=== PATIENT | female | born 1955 | race African-American/Black ===

== ENCOUNTER 2017-03-02 13:44 | Emergency (ER) | payer MEDICARE, OTHER ==
[~2017-03-02] VITALS: Ht 167.6 cm; Wt 70.0 kg
[~2017-03-02 13:44] MED LIST: ACET-2178 PO; ASCO500C15 PO; BUPR150T3 PO; CALC-381 PO; CALC667C4 PO; CHOL100026 PO; CINA30 PO; FERR-63 PO; GLIM4TAB2 PO; LOSA25TA12 PO; METO-296 PO; PARO-41 PO; PRAV80TA21 PO; VALS320T2 PO; [UNRECOGNIZED DRUG - OTHER] PO; flax seed oil PO
[2017-03-02] MEDS ORDERED: LIDOCAINE HCL 1% 20ML VIAL (Pyxis) INJ MC ONE (14:30)
[2017-03-02 14:33] LABS: BASOPHILS % 1.1 % (0.0-2.0); EOSINOPHILS % 0.9 % (0.0-5.0); HEMATOCRIT. 31.9 % (36.0-48.0); HEMOGLOBIN. 10.5 g/dL (12.0-16.0); LYMPHOCYTES % 16.6 % (20.0-50.0); MEAN CORPUSCULAR HEMOGLOBIN 28.7 pg (28.0-32.0); MEAN CORPUSCULAR VOLUME 87.3 fL (81.0-99.0); MEAN PLATELET VOLUME 6.9 fl (7.4-10.4); MONOCYTES % 7.5 % (2.0-8.0); NEUTROPHILS % 73.9 % (40.0-76.0); PLATELET 369 x1000/uL (130-400); RED BLOOD CELL COUNT 3.66 mill/uL (4.2-5.4); RED CELL DISTRIBUTION WIDTH 22.1 % (11.6-14.6)
[2017-03-02 14:42] LABS: PROTHROMBIN TIME 10.4 sec
[2017-03-02 14:47] LABS: CARBON DIOXIDE 27 mEq/L (21-32); CHLORIDE 105 mEq/L (98-107)
[2017-03-02 16:26] LABS: PLATELET ESTIMATE NORMAL
[2017-03-02 16:37] VITALS: BP 146/72
== END 2017-03-02 16:45 | disposition home or self-care (01) ==
LOC: ER 13:45
DX: T82.838A Hemorrhage due to vascular prosthetic devices, implants and grafts, initial encounter (principal); I10 Essential (primary) hypertension; E11.22 Type 2 diabetes mellitus with diabetic chronic kidney disease; N18.6 End stage renal disease; I11.9 Hypertensive heart disease without heart failure; Z88.0 Allergy status to penicillin; Z99.2 Dependence on renal dialysis; Z79.899 Other long term (current) drug therapy; Y84.1 Kidney dialysis as the cause of abnormal reaction of the patient, or of later complication, without mention of misadventure at the time of the procedure
CPT/HCPCS: 12001; 36415; 80053; 85025; 85610; 85730; 99284; J3490

== ENCOUNTER 2018-02-07 19:43 | Inpatient (IN) | payer MEDICARE, MEDICAID ==
[~2018-02-07] VITALS: Ht 172.7 cm; Wt 113.2 kg
[~2018-02-07 19:43] MED LIST changes: -ACET-2178 PO; +AMLO10TA80 PO; -CALC667C4 PO; +CALCIUM ACETATE; -CHOL100026 PO; +CHOL100044 PO; +HYDR-4135 PO; -LOSA25TA12 PO; -METO-296 PO; +METO-396 PO; +NAPR-681 PO; +ZOLP5TAB2 PO; -flax seed oil PO
[2018-02-07] MEDS ORDERED: SODIUM CHLORIDE 0.9% 1,000 ML IV ONE (20:15)
[2018-02-07 22:57] LABS: BASOPHILS % 1.1 % (0.0-2.0); EOSINOPHILS % 2.4 % (0.0-5.0); HEMATOCRIT. 27.9 % (36.0-48.0); HEMOGLOBIN. 9.3 g/dL (12.0-16.0); LYMPHOCYTES % 19.5 % (20.0-50.0); MEAN CORPUSCULAR HEMOGLOBIN 29.1 pg (28.0-32.0); MEAN CORPUSCULAR VOLUME 87.4 fL (81.0-99.0); MEAN PLATELET VOLUME 7.7 fl (7.4-10.4); MONOCYTES % 13.7 % (2.0-8.0); NEUTROPHILS % 63.3 % (40.0-76.0); PLATELET 438 x1000/uL (130-400); RED BLOOD CELL COUNT 3.19 mill/uL (4.2-5.4); RED CELL DISTRIBUTION WIDTH 19.1 % (11.6-14.6)
[2018-02-07 23:04] LABS: PARTIAL THROMBOPLASTIN TIME 28.8 sec (23.4-31.0)
[2018-02-08 07:41] VITALS: BP 168/82
[2018-02-08] MEDS ORDERED: CLONIDINE 0.1MG TABLET PO PRN (10:30)
[2018-02-08] MEDS ORDERED: LORAZEPAM 2MG/ML CPJ IV PRN (10:30)
[2018-02-08] MEDS ORDERED: DOCUSATE SODIUM 100MG CAPSULE PO PRN (10:30)
[2018-02-08] MEDS ORDERED: HYDROCODONE/ACETAMINOPHEN 5/325MG TABLET PO PRN (10:30)
[2018-02-08] MEDS ORDERED: MAGNESIUM/ALUMINUM HYDROXIDE/SIMETHICONE 30ML UDC PO PRN (10:30)
[2018-02-08] MEDS ORDERED: ACETAMINOPHEN 325MG TABLET PO PRN (10:30)
[2018-02-08] MEDS ORDERED: NA PHOS,M-B/NA PHOS,DI-BA ENEMA 118ML PR PRN (10:30)
[2018-02-08] MEDS ORDERED: GUAIFENESIN 200MG/10ML SUGAR FREE UDC PO PRN (10:30)
[2018-02-08] MEDS ORDERED: ONDANSETRON HCL 4MG/2ML VIAL IV PRN (10:30)
[2018-02-08] MEDS ORDERED: HYDROMORPHONE HCL/PF 2MG/ML CPJ IV PRN (10:30)
[2018-02-08] MEDS ORDERED: IPRATROPIUM/ALBUTEROL 0.5-3(2.5)MG/3ML NEB INH PRN (10:30)
[2018-02-08] MEDS ORDERED: DIPHENHYDRAMINE 50MG/ML VIAL IV PRN (10:30)
== END 2018-02-08 10:18 | disposition left against medical advice (07) | DRG 314 ==
LOC: ER 19:59 → 7WST 02-08 00:26 → ENRESERV 02-08 07:43 → 7WST 02-08 09:05
PROVIDERS: ADMIT Internal Medicine; ATTEND Internal Medicine
DX: T82.838A Hemorrhage due to vascular prosthetic devices, implants and grafts, initial encounter (principal); N18.6 End stage renal disease; I13.2 Hypertensive heart and chronic kidney disease with heart failure and with stage 5 chronic kidney disease, or end stage renal disease; E11.22 Type 2 diabetes mellitus with diabetic chronic kidney disease; E46 Unspecified protein-calorie malnutrition; D64.9 Anemia, unspecified; Y84.1 Kidney dialysis as the cause of abnormal reaction of the patient, or of later complication, without mention of misadventure at the time of the procedure; I25.10 Atherosclerotic heart disease of native coronary artery without angina pectoris; I50.9 Heart failure, unspecified; J44.9 Chronic obstructive pulmonary disease, unspecified; Z79.84 Long term (current) use of oral hypoglycemic drugs; Z79.899 Other long term (current) drug therapy; Z95.1 Presence of aortocoronary bypass graft; Y92.89 Other specified places as the place of occurrence of the external cause; Z99.2 Dependence on renal dialysis; Z88.0 Allergy status to penicillin; I25.2 Old myocardial infarction; Z68.37 Body mass index [BMI] 37.0-37.9, adult
CPT/HCPCS: 36415; 71045; 80048; 85025; 85610; 85730; 86850; 86900; 93005; J7030

== ENCOUNTER 2018-02-20 15:34 | Inpatient (IN) | payer MEDICARE, MEDICAID ==
[~2018-02-20] VITALS: Ht 160 cm; Wt 94.8 kg
[2018-02-20 17:34] LABS: BASOPHILS % 0.5 % (0.0-2.0); EOSINOPHILS % 1.1 % (0.0-5.0); HEMATOCRIT. 29.2 % (36.0-48.0); HEMOGLOBIN. 9.7 g/dL (12.0-16.0); LYMPHOCYTES % 12.6 % (20.0-50.0); MEAN CORPUSCULAR VOLUME 87.7 fL (81.0-99.0); MEAN PLATELET VOLUME 7.1 fl (7.4-10.4); MONOCYTES % 13.4 % (2.0-8.0); NEUTROPHILS % 72.4 % (40.0-76.0); PLATELET 400 x1000/uL (130-400); RED BLOOD CELL COUNT 3.33 mill/uL (4.2-5.4); RED CELL DISTRIBUTION WIDTH 19.4 % (11.6-14.6)
[2018-02-20 17:38] LABS: CHLORIDE 102 mEq/L (98-107)
[2018-02-20 17:40] LABS: PARTIAL THROMBOPLASTIN TIME 29.7 sec (23.4-31.0); PROTHROMBIN TIME 10.4 sec (9.4-11.6)
[2018-02-20] MEDS ORDERED: MORPHINE SULFATE 4 MG/ML CPJ (NOT FOR IM USE) IV PRN (19:45)
[2018-02-20] MEDS ORDERED: LORAZEPAM 2MG/ML CPJ IV PRN (19:45)
[2018-02-20] MEDS ORDERED: NA PHOS,M-B/NA PHOS,DI-BA ENEMA 118ML PR PRN (19:45)
[2018-02-20] MEDS ORDERED: GUAIFENESIN 200MG/10ML SUGAR FREE UDC PO PRN (19:45)
[2018-02-20] MEDS ORDERED: ACETAMINOPHEN 325MG TABLET PO PRN (19:45)
[2018-02-20] MEDS ORDERED: IPRATROPIUM/ALBUTEROL 0.5-3(2.5)MG/3ML NEB INH PRN (19:45)
[2018-02-20] MEDS ORDERED: ONDANSETRON HCL 4MG/2ML VIAL IV PRN (19:45)
[2018-02-20] MEDS ORDERED: MAGNESIUM/ALUMINUM HYDROXIDE/SIMETHICONE 30ML UDC PO PRN (19:45)
[2018-02-20] MEDS ORDERED: DIPHENHYDRAMINE 50MG/ML VIAL IV PRN (19:45)
[2018-02-20] MEDS ORDERED: DOCUSATE SODIUM 100MG CAPSULE PO PRN (19:45)
[2018-02-20] MEDS ORDERED: DEXTROSE 50% WATER 50ML SYRINGE IV PRN (20:45)
[2018-02-20] MEDS: CLONIDINE 0.1MG TABLET PO PRN (22:26)
[2018-02-20] MEDS: BLOOD SUGAR DIAGNOSTIC STRIP TEST SCH (23:00)
[2018-02-20] MEDS: INSULIN LISPRO 100 UNITS/ML SUBCUT SCH (23:00)
[2018-02-20] MEDS ORDERED: METO-396 MT (23:42)
[2018-02-20 23:53] VITALS: BP 160/50
[2018-02-21] VITALS (10 sets, daily range): BP systolic 147–177; BP diastolic 47–63
[2018-02-21] MEDS: CLONIDINE 0.1MG TABLET PO PRN ×2 (05:11→18:01)
[2018-02-21] MEDS: BLOOD SUGAR DIAGNOSTIC STRIP TEST SCH ×4 (06:36→20:26)
[2018-02-21] MEDS: INSULIN LISPRO 100 UNITS/ML SUBCUT SCH ×4 (06:37→21:00)
[2018-02-21 07:02] LABS: BASOPHILS % 0.7 % (0.0-2.0); EOSINOPHILS % 1.6 % (0.0-5.0); HEMATOCRIT. 26.8 % (36.0-48.0); HEMOGLOBIN. 8.9 g/dL (12.0-16.0); LYMPHOCYTES % 7.9 % (20.0-50.0); MEAN CORPUSCULAR HEMOGLOBIN 29.2 pg (28.0-32.0); MEAN CORPUSCULAR VOLUME 88.1 fL (81.0-99.0); MEAN PLATELET VOLUME 7.9 fl (7.4-10.4); MONOCYTES % 13.1 % (2.0-8.0); NEUTROPHILS % 76.7 % (40.0-76.0); PLATELET 350 x1000/uL (130-400); RED BLOOD CELL COUNT 3.05 mill/uL (4.2-5.4); RED CELL DISTRIBUTION WIDTH 19.7 % (11.6-14.6)
[2018-02-21 07:35] LABS: CHLORIDE 105 mEq/L (98-107)
[2018-02-21] MEDS ORDERED: FENTANYL CITRATE/PF 50MCG/ML 2ML VIAL IV PRN (07:45)
[2018-02-21] MEDS ORDERED: MIDAZOLAM HCL 5 MG/5 ML VIAL IV ONE (07:45)
[2018-02-21 08:00] LABS: LDL CHOLESTEROL 64 mg/dL (5-100)
[2018-02-21 08:04] LABS: HDL CHOLESTEROL 33 mg/dL (40-59)
[2018-02-21] MEDS ORDERED: SODIUM BICARBONATE 4% (2.4MEQ) 5ML VIAL IV ONE (08:15)
[2018-02-21] MEDS ORDERED: LIDOCAINE HCL 1% 20ML VIAL (Pyxis) INJ ONE (08:15)
[2018-02-21] MEDS ORDERED: IOHEXOL-300 100 ML BOTTLE ONE (08:15)
[2018-02-21] MEDS ORDERED: CLINDAMYCIN 600MG PREMIX 50 ML IV SCH (08:15)
[2018-02-21] MEDS ORDERED: HEPARIN 1000 UNITS/ML 10ML ONE (08:15)
[2018-02-21] MEDS ORDERED: MIDAZOLAM HCL 2 MG/2 ML VIAL ONE (08:24)
[2018-02-21] MEDS ORDERED: FENTANYL CITRATE/PF 50MCG/ML 2ML VIAL ONE (08:24)
[2018-02-21] MEDS: HYDRALAZINE HCL 50MG TABLET PO SCH ×2 (13:25→21:43)
[2018-02-22 04:00] VITALS: BP 154/58
[2018-02-22] MEDS: BLOOD SUGAR DIAGNOSTIC STRIP TEST SCH ×4 (05:39→20:38)
[2018-02-22] MEDS: HYDRALAZINE HCL 50MG TABLET PO SCH ×3 (06:08→21:58)
[2018-02-22] MEDS: INSULIN LISPRO 100 UNITS/ML SUBCUT SCH ×3 (06:09→20:37)
[2018-02-22 07:27] LABS: CHLORIDE 101 mEq/L (98-107)
[2018-02-22 07:33] LABS: BASOPHILS % 0.4 % (0.0-2.0); EOSINOPHILS % 0.6 % (0.0-5.0); HEMATOCRIT. 28.5 % (36.0-48.0); HEMOGLOBIN. 9.6 g/dL (12.0-16.0); MEAN CORPUSCULAR HEMOGLOBIN 29.4 pg (28.0-32.0); MEAN CORPUSCULAR VOLUME 87.5 fL (81.0-99.0); MEAN PLATELET VOLUME 7.7 fl (7.4-10.4); MONOCYTES % 13.2 % (2.0-8.0); NEUTROPHILS % 73.8 % (40.0-76.0); PLATELET 334 x1000/uL (130-400); RED BLOOD CELL COUNT 3.26 mill/uL (4.2-5.4); RED CELL DISTRIBUTION WIDTH 19.5 % (11.6-14.6)
[2018-02-22 07:37] LABS: HDL CHOLESTEROL 33 mg/dL (40-59)
[2018-02-22 07:39] LABS: LDL CHOLESTEROL 66 mg/dL (5-100)
[2018-02-22 07:41] LABS: CREATINE KINASE 29 IU/L (26-192)
[2018-02-22 07:44] LABS: CREATINE KINASE MB FRACTION < 0.5 ng/mL (0.5-3.6)
[2018-02-22 08:00] VITALS: BP 116/84
[2018-02-22 12:00] VITALS: BP 159/47
[2018-02-22 16:00] VITALS: BP 133/52
[2018-02-22] MEDS ORDERED: CALC667C MT (16:15)
[2018-02-22] MEDS ORDERED: ASPI-1159 MT (16:16)
[2018-02-22] MEDS: AMLODIPINE 5MG TABLET PO SCH ×2 (16:25→20:52)
[2018-02-22] MEDS: CALCIUM ACETATE 667MG CAPSULE PO SCH (18:23)
[2018-02-22] MEDS: BUPROPION HCL 150MG SR TABLET PO SCH (18:23)
[2018-02-22] MEDS: FERROUS SULFATE 325MG TABLET PO SCH (18:24)
[2018-02-22 20:00] VITALS: BP 107/59
[2018-02-22] MEDS: METOPROLOL TARTRATE 25MG TABLET PO SCH (20:52)
[2018-02-22] MEDS ORDERED: MEDICATION NOT ON FORMULARY EA (Pravastatin Sodium 80 MG) PO SCH (21:00)
[2018-02-22] MEDS: ATORVASTATIN CALCIUM 20MG TABLET PO SCH (21:01)
[2018-02-22] MEDS: PAROXETINE HCL 20MG TABLET PO SCH (21:57)
[2018-02-23] VITALS: BP 149/53
[2018-02-23 04:30] VITALS: BP 158/56
[2018-02-23] MEDS: HYDRALAZINE HCL 50MG TABLET PO SCH ×3 (05:32→21:13)
[2018-02-23] MEDS: INSULIN LISPRO 100 UNITS/ML SUBCUT SCH ×4 (06:03→21:00)
[2018-02-23] MEDS: BLOOD SUGAR DIAGNOSTIC STRIP TEST SCH ×4 (06:03→20:35)
[2018-02-23 06:53] LABS: BASOPHILS % 0.5 % (0.0-2.0); EOSINOPHILS % 1.6 % (0.0-5.0); HEMATOCRIT. 28.8 % (36.0-48.0); HEMOGLOBIN. 9.5 g/dL (12.0-16.0); LYMPHOCYTES % 12.7 % (20.0-50.0); MEAN CORPUSCULAR HEMOGLOBIN 28.9 pg (28.0-32.0); MEAN CORPUSCULAR VOLUME 87.3 fL (81.0-99.0); MEAN PLATELET VOLUME 7.9 fl (7.4-10.4); MONOCYTES % 14.7 % (2.0-8.0); NEUTROPHILS % 70.5 % (40.0-76.0); PLATELET 332 x1000/uL (130-400); RED CELL DISTRIBUTION WIDTH 18.8 % (11.6-14.6)
[2018-02-23] MEDS: CALCIUM ACETATE 667MG CAPSULE PO SCH ×3 (07:40→18:59)
[2018-02-23 08:00] VITALS: BP 131/54
[2018-02-23] MEDS: FERROUS SULFATE 325MG TABLET PO SCH ×2 (09:00→18:59)
[2018-02-23] MEDS: BUPROPION HCL 150MG SR TABLET PO SCH ×2 (09:00→18:59)
[2018-02-23] MEDS: LOSARTAN POTASSIUM 100 MG TABLET PO SCH (09:00)
[2018-02-23] MEDS: CHOLECALCIFEROL (D3) 1000 UNIT TABLET PO SCH (09:00)
[2018-02-23] MEDS: AMLODIPINE 5MG TABLET PO SCH ×2 (09:00→21:12)
[2018-02-23] MEDS ORDERED: PAROXETINE HCL 20MG TABLET PO SCH (09:00)
[2018-02-23] MEDS: ASPIRIN 81MG EC TABLET PO SCH (09:00)
[2018-02-23] MEDS ORDERED: MEDICATION NOT ON FORMULARY EA (Metoprolol Succinate 1 TAB) MT SCH (09:00)
[2018-02-23] MEDS: METOPROLOL TARTRATE 25MG TABLET PO SCH ×2 (09:00→21:00)
[2018-02-23] MEDS ORDERED: LIDOCAINE HCL 4% CREAM 76GM TUBE TP PRN (09:30)
[2018-02-23] MEDS ORDERED: DESMOPRESSIN ACETATE IV NR (10:00)
[2018-02-23] MEDS ORDERED: SODIUM CHLORIDE 0.9% IV NR (10:00)
[2018-02-23] MEDS: HYDROCODONE/ACETAMINOPHEN 10/325MG TABLET PO PRN (11:29)
[2018-02-23 12:00] VITALS: BP 141/52
[2018-02-23 16:00] VITALS: BP 138/64
[2018-02-23] MEDS: ATORVASTATIN CALCIUM 20MG TABLET PO SCH (21:12)
[2018-02-23] MEDS: PAROXETINE HCL 20MG TABLET PO SCH (21:13)
[2018-02-24] VITALS: BP 155/59
[2018-02-24 04:00] VITALS: BP 175/57
[2018-02-24] MEDS: HYDRALAZINE HCL 50MG TABLET PO SCH ×3 (05:21→23:38)
[2018-02-24] MEDS: CLONIDINE 0.1MG TABLET PO PRN (05:21)
[2018-02-24] MEDS: BLOOD SUGAR DIAGNOSTIC STRIP TEST SCH ×4 (05:39→21:00)
[2018-02-24] MEDS: INSULIN LISPRO 100 UNITS/ML SUBCUT SCH ×4 (05:44→21:00)
[2018-02-24 07:30] LABS: BASOPHILS % 0.4 % (0.0-2.0); EOSINOPHILS % 1.4 % (0.0-5.0); HEMATOCRIT. 26.4 % (36.0-48.0); HEMOGLOBIN. 8.7 g/dL (12.0-16.0); LYMPHOCYTES % 8.5 % (20.0-50.0); MEAN CORPUSCULAR HEMOGLOBIN 28.9 pg (28.0-32.0); MEAN CORPUSCULAR VOLUME 87.1 fL (81.0-99.0); MEAN PLATELET VOLUME 8.2 fl (7.4-10.4); MONOCYTES % 12.5 % (2.0-8.0); NEUTROPHILS % 77.2 % (40.0-76.0); PLATELET 324 x1000/uL (130-400); RED BLOOD CELL COUNT 3.03 mill/uL (4.2-5.4); RED CELL DISTRIBUTION WIDTH 19.1 % (11.6-14.6)
[2018-02-24] MEDS: CALCIUM ACETATE 667MG CAPSULE PO SCH ×3 (07:40→17:02)
[2018-02-24 08:00] VITALS: BP 164/53
[2018-02-24] MEDS: METOPROLOL TARTRATE 25MG TABLET PO SCH ×2 (09:00→20:35)
[2018-02-24] MEDS: BUPROPION HCL 150MG SR TABLET PO SCH ×2 (09:00→17:00)
[2018-02-24] MEDS: ASPIRIN 81MG EC TABLET PO SCH (09:00)
[2018-02-24] MEDS: AMLODIPINE 5MG TABLET PO SCH ×2 (09:00→20:35)
[2018-02-24] MEDS: CHOLECALCIFEROL (D3) 1000 UNIT TABLET PO SCH (09:00)
[2018-02-24] MEDS: FERROUS SULFATE 325MG TABLET PO SCH ×2 (09:00→17:00)
[2018-02-24] MEDS: LOSARTAN POTASSIUM 100 MG TABLET PO SCH (09:00)
[2018-02-24 12:00] VITALS: BP 155/51
[2018-02-24] MEDS: HYDROCODONE/ACETAMINOPHEN 10/325MG TABLET PO PRN ×2 (15:47→20:37)
[2018-02-24 16:00] VITALS: BP 164/68
[2018-02-24 20:00] VITALS: BP 144/46
[2018-02-24] MEDS: PAROXETINE HCL 20MG TABLET PO SCH (20:34)
[2018-02-24] MEDS: ATORVASTATIN CALCIUM 20MG TABLET PO SCH (20:34)
[2018-02-25] VITALS: BP 153/49
[2018-02-25 04:00] VITALS: BP 140/31
[2018-02-25] MEDS: HYDRALAZINE HCL 50MG TABLET PO SCH ×3 (06:20→12:11)
[2018-02-25] MEDS: BLOOD SUGAR DIAGNOSTIC STRIP TEST SCH ×2 (06:35→11:49)
[2018-02-25] MEDS: INSULIN LISPRO 100 UNITS/ML SUBCUT SCH ×2 (06:50→11:49)
[2018-02-25 07:34] LABS: HEMATOCRIT. 27.9 % (36.0-48.0); HEMOGLOBIN. 9.1 g/dL (12.0-16.0); MEAN CORPUSCULAR HEMOGLOBIN 28.7 pg (28.0-32.0); MEAN CORPUSCULAR VOLUME 87.6 fL (81.0-99.0); MEAN PLATELET VOLUME 8.3 fl (7.4-10.4); PLATELET 373 x1000/uL (130-400); RED BLOOD CELL COUNT 3.18 mill/uL (4.2-5.4)
[2018-02-25 08:00] VITALS: BP 150/41
[2018-02-25] MEDS: AMLODIPINE 5MG TABLET PO SCH (08:12)
[2018-02-25] MEDS: CALCIUM ACETATE 667MG CAPSULE PO SCH ×2 (08:12→12:11)
[2018-02-25] MEDS: FERROUS SULFATE 325MG TABLET PO SCH (08:12)
[2018-02-25] MEDS: LOSARTAN POTASSIUM 100 MG TABLET PO SCH (08:13)
[2018-02-25] MEDS: ASPIRIN 81MG EC TABLET PO SCH (08:17)
[2018-02-25] MEDS: BUPROPION HCL 150MG SR TABLET PO SCH (08:17)
[2018-02-25] MEDS: CHOLECALCIFEROL (D3) 1000 UNIT TABLET PO SCH (08:17)
[2018-02-25] MEDS: METOPROLOL TARTRATE 25MG TABLET PO SCH (08:17)
[2018-02-25 08:53] VITALS: BP_SYST 145; BP_SYST 159; BP_DIAS 42; BP_DIAS 48
[2018-02-25 12:05] VITALS: BP 151/52
[2018-02-26 10:09] LABS: PLATELET ESTIMATE NORMAL
== END 2018-02-25 13:53 | disposition home or self-care (01) | DRG 314 ==
LOC: ER 15:56 → 8WST 19:22 → EDBEDREQTM 19:30 → EDBEDREQ 19:30 → ENRESERV 19:52
PROVIDERS: ADMIT Internal Medicine; ATTEND Internal Medicine
PROC: 5A1D70Z Performance of Urinary Filtration, Intermittent, Less than 6 Hours Per Day (ICD-10-PCS; 2018-02-21)
PROC: B51W1ZZ Fluoroscopy of Dialysis Shunt/Fistula using Low Osmolar Contrast (ICD-10-PCS; principal; 2018-02-22)
PROC: B3111ZZ Fluoroscopy of Right Brachiocephalic-Subclavian Artery using Low Osmolar Contrast (ICD-10-PCS; 2018-02-22)
PROC: 5A1D70Z Performance of Urinary Filtration, Intermittent, Less than 6 Hours Per Day (ICD-10-PCS; 2018-02-23)
PROC: 5A1D70Z Performance of Urinary Filtration, Intermittent, Less than 6 Hours Per Day (ICD-10-PCS; 2018-02-24)
DX: T82.838A Hemorrhage due to vascular prosthetic devices, implants and grafts, initial encounter (principal); N18.6 End stage renal disease; I13.2 Hypertensive heart and chronic kidney disease with heart failure and with stage 5 chronic kidney disease, or end stage renal disease; E46 Unspecified protein-calorie malnutrition; E11.40 Type 2 diabetes mellitus with diabetic neuropathy, unspecified; E11.22 Type 2 diabetes mellitus with diabetic chronic kidney disease; E11.51 Type 2 diabetes mellitus with diabetic peripheral angiopathy without gangrene; E11.319 Type 2 diabetes mellitus with unspecified diabetic retinopathy without macular edema; I48.0 Paroxysmal atrial fibrillation; I50.30 Unspecified diastolic (congestive) heart failure; E11.8 Type 2 diabetes mellitus with unspecified complications; I25.10 Atherosclerotic heart disease of native coronary artery without angina pectoris; D64.9 Anemia, unspecified; E78.00 Pure hypercholesterolemia, unspecified; F41.9 Anxiety disorder, unspecified; D50.9 Iron deficiency anemia, unspecified; Y84.1 Kidney dialysis as the cause of abnormal reaction of the patient, or of later complication, without mention of misadventure at the time of the procedure; F32.9 Major depressive disorder, single episode, unspecified; Z79.84 Long term (current) use of oral hypoglycemic drugs; Z79.82 Long term (current) use of aspirin; Z79.899 Other long term (current) drug therapy; Z87.891 Personal history of nicotine dependence; Z99.2 Dependence on renal dialysis; Z88.0 Allergy status to penicillin; Z95.1 Presence of aortocoronary bypass graft; Z98.61 Coronary angioplasty status; I25.2 Old myocardial infarction; Y92.89 Other specified places as the place of occurrence of the external cause; Z68.37 Body mass index [BMI] 37.0-37.9, adult
CPT/HCPCS: 36415; 36901; 71045; 80048; 80053; 80061; 82550; 82553; 82962; 83735; 84439; 84443; 84484; 85025; 85610; 85730; 86850; 86900; 93005; 93306; 99285; C1887; J1644; J1815; J2060; J2250; J2597; J3010; J3490; J7030; Q9967

== ENCOUNTER 2018-08-23 20:33 | Inpatient (IN) | payer MEDICARE, OTHER ==
[~2018-08-23] VITALS: Ht 167.6 cm; Wt 76.2 kg
[~2018-08-23 20:33] MED LIST changes: +ASPI-1159 MT; +CALC667C MT; -CINA30 PO; -GLIM4TAB2 PO; +METO-396 MT; -METO-396 PO; -NAPR-681 PO
[2018-08-23] MEDS ORDERED: ONDANSETRON HCL 4MG/2ML INJ IV STA (23:09)
[2018-08-23] MEDS ORDERED: MORPHINE SULFATE 4 MG/ML CPJ (NOT FOR IM USE) IV STA (23:09)
[2018-08-23 23:52] LABS: BASOPHILS % 0.4 % (0.0-2.0); EOSINOPHILS % 0.3 % (0.0-5.0); HEMATOCRIT. 27.5 % (36.0-48.0); HEMOGLOBIN. 9.3 g/dL (12.0-16.0); LYMPHOCYTES % 7.8 % (20.0-50.0); MEAN CORPUSCULAR HEMOGLOBIN 30.8 pg (28.0-32.0); MEAN CORPUSCULAR VOLUME 91.6 fL (81.0-99.0); MEAN PLATELET VOLUME 8.2 fl (7.4-10.4); NEUTROPHILS % 84.5 % (40.0-76.0); PLATELET 301 x1000/uL (130-400); RED CELL DISTRIBUTION WIDTH 19.8 % (11.6-14.6)
[2018-08-24 00:01] LABS: CHLORIDE 105 mEq/L (98-107)
[2018-08-24] MEDS ORDERED: DOCUSATE SODIUM 100MG CAPSULE PO PRN (11:00)
[2018-08-24] MEDS ORDERED: DIPHENHYDRAMINE 50MG/ML VIAL IV PRN (11:00)
[2018-08-24] MEDS ORDERED: IPRATROPIUM/ALBUTEROL 0.5-3(2.5)MG/3ML NEB INH PRN (11:00)
[2018-08-24] MEDS ORDERED: ACETAMINOPHEN 325MG TABLET PO PRN (11:00)
[2018-08-24] MEDS ORDERED: HYDROCODONE/ACETAMINOPHEN 10/325MG TABLET PO PRN (11:00)
[2018-08-24] MEDS ORDERED: ONDANSETRON HCL 4MG/2ML INJ IV PRN (11:00)
[2018-08-24] MEDS ORDERED: NA PHOS,M-B/NA PHOS,DI-BA ENEMA 118ML PR PRN (11:00)
[2018-08-24] MEDS ORDERED: LORAZEPAM 2MG/ML CPJ IV PRN (11:00)
[2018-08-24] MEDS ORDERED: MAGNESIUM/ALUMINUM HYDROXIDE/SIMETHICONE 30ML UDC PO PRN (11:00)
[2018-08-24] MEDS ORDERED: GUAIFENESIN 200MG/10ML SUGAR FREE UDC PO PRN (11:00)
[2018-08-24] MEDS ORDERED: ENOXAPARIN 40MG/0.4ML SYR SUBCUT SCH (12:15)
[2018-08-24] MEDS ORDERED: MORPHINE SULFATE 4 MG/ML CPJ (NOT FOR IM USE) IV PRN (16:30)
[2018-08-24 17:15] VITALS: BP 94/50
[2018-08-24 18:00] VITALS: BP 94/52
[2018-08-24 20:00] VITALS: BP 139/45
[2018-08-24] MEDS: ENOXAPARIN 40MG/0.4ML SYR SUBCUT SCH (21:24)
[2018-08-25] VITALS: BP 162/52
[2018-08-25] MEDS: CLONIDINE 0.1MG TABLET PO PRN ×2 (02:45→13:41)
[2018-08-25] MEDS ORDERED: DEXTROSE 50% WATER 50ML SYRINGE IV PRN (03:30)
[2018-08-25 04:00] VITALS: BP 155/49
[2018-08-25 04:28] LABS: CHLORIDE 104 mEq/L (98-107)
[2018-08-25 04:33] LABS: BASOPHILS % 0.5 % (0.0-2.0); EOSINOPHILS % 1.4 % (0.0-5.0); HEMOGLOBIN. 8.7 g/dL (12.0-16.0); MEAN CORPUSCULAR HEMOGLOBIN 30.2 pg (28.0-32.0); MEAN CORPUSCULAR VOLUME 93.4 fL (81.0-99.0); MEAN PLATELET VOLUME 8.4 fl (7.4-10.4); MONOCYTES % 11.5 % (2.0-8.0); NEUTROPHILS % 72.6 % (40.0-76.0); PLATELET 270 x1000/uL (130-400); RED BLOOD CELL COUNT 2.89 mill/uL (4.2-5.4); RED CELL DISTRIBUTION WIDTH 18.9 % (11.6-14.6)
[2018-08-25 04:42] LABS: PHOSPHORUS 7.7 mg/dL (2.5-4.9)
[2018-08-25 04:43] LABS: LDL CHOLESTEROL 71 mg/dL (5-100)
[2018-08-25 04:44] LABS: HDL CHOLESTEROL 32 mg/dL (40-59)
[2018-08-25 05:09] LABS: T4 FREE 0.87 ng/dL (0.76-1.46)
[2018-08-25] MEDS: BLOOD SUGAR DIAGNOSTIC STRIP TEST SCH ×4 (07:35→21:40)
[2018-08-25] MEDS: INSULIN LISPRO 100 UNITS/ML SUBCUT SCH ×4 (07:35→21:00)
[2018-08-25 08:00] VITALS: BP 152/53
[2018-08-25] MEDS: ASPIRIN 81MG EC TABLET PO SCH (09:40)
[2018-08-25 12:00] VITALS: BP 166/44
[2018-08-25] MEDS: PAROXETINE HCL 10MG TABLET PO SCH (16:09)
[2018-08-25] MEDS: SEVELAMER CARBONATE 800 MG TABLET PO SCH (16:10)
[2018-08-25] MEDS: HYDRALAZINE HCL 50MG TABLET PO SCH ×2 (16:10→21:40)
[2018-08-25] MEDS: AMLODIPINE 10MG TABLET PO SCH (16:10)
[2018-08-25 20:00] VITALS: BP 142/52
[2018-08-25] MEDS: ENOXAPARIN 40MG/0.4ML SYR SUBCUT SCH (21:39)
[2018-08-25] MEDS: BUPROPION HCL 150MG SR TABLET PO SCH (21:39)
[2018-08-26] VITALS: BP 135/83
[2018-08-26 04:00] VITALS: BP 128/85
[2018-08-26] MEDS: BLOOD SUGAR DIAGNOSTIC STRIP TEST SCH ×4 (06:08→21:00)
[2018-08-26] MEDS: HYDRALAZINE HCL 50MG TABLET PO SCH ×3 (06:20→21:19)
[2018-08-26] MEDS: INSULIN LISPRO 100 UNITS/ML SUBCUT SCH ×4 (06:20→21:00)
[2018-08-26 08:00] VITALS: BP 110/50
[2018-08-26] MEDS: SEVELAMER CARBONATE 800 MG TABLET PO SCH (10:24)
[2018-08-26] MEDS: ASPIRIN 81MG EC TABLET PO SCH (10:25)
[2018-08-26] MEDS: PAROXETINE HCL 10MG TABLET PO SCH (10:25)
[2018-08-26] MEDS: BUPROPION HCL 150MG SR TABLET PO SCH ×2 (10:25→21:19)
[2018-08-26] MEDS: AMLODIPINE 10MG TABLET PO SCH (10:25)
[2018-08-26 12:54] LABS: BASOPHILS % 0.4 % (0.0-2.0); HEMATOCRIT. 26.5 % (36.0-48.0); HEMOGLOBIN. 8.8 g/dL (12.0-16.0); LYMPHOCYTES % 10.6 % (20.0-50.0); MEAN CORPUSCULAR HEMOGLOBIN 30.3 pg (28.0-32.0); MEAN CORPUSCULAR VOLUME 91.6 fL (81.0-99.0); MEAN PLATELET VOLUME 8.5 fl (7.4-10.4); MONOCYTES % 8.7 % (2.0-8.0); NEUTROPHILS % 79.3 % (40.0-76.0); PLATELET 267 x1000/uL (130-400); RED BLOOD CELL COUNT 2.89 mill/uL (4.2-5.4); RED CELL DISTRIBUTION WIDTH 18.7 % (11.6-14.6)
[2018-08-26 16:00] VITALS: BP 167/62
[2018-08-26 20:00] VITALS: BP 147/51
[2018-08-26] MEDS ORDERED: EPOETIN ALFA 10000UNITS/ML VIAL SUBCUT SCH (21:00)
[2018-08-26] MEDS: ENOXAPARIN 40MG/0.4ML SYR SUBCUT SCH (21:19)
[2018-08-27] VITALS (7 sets, daily range): BP systolic 111–177; BP diastolic 46–68
[2018-08-27] MEDS: BLOOD SUGAR DIAGNOSTIC STRIP TEST SCH ×2 (05:29→12:10)
[2018-08-27] MEDS: HYDRALAZINE HCL 50MG TABLET PO SCH (05:38)
[2018-08-27] MEDS: CLONIDINE 0.1MG TABLET PO PRN (05:38)
[2018-08-27] MEDS: INSULIN LISPRO 100 UNITS/ML SUBCUT SCH ×2 (05:42→12:40)
[2018-08-27 07:46] LABS: BASOPHILS % 0.5 % (0.0-2.0); EOSINOPHILS % 1.7 % (0.0-5.0); HEMATOCRIT. 27.5 % (36.0-48.0); HEMOGLOBIN. 9.1 g/dL (12.0-16.0); LYMPHOCYTES % 12.5 % (20.0-50.0); MEAN CORPUSCULAR HEMOGLOBIN 30.4 pg (28.0-32.0); MEAN CORPUSCULAR VOLUME 91.7 fL (81.0-99.0); MEAN PLATELET VOLUME 8.7 fl (7.4-10.4); MONOCYTES % 12.5 % (2.0-8.0); NEUTROPHILS % 72.8 % (40.0-76.0); PLATELET 258 x1000/uL (130-400); RED BLOOD CELL COUNT 2.99 mill/uL (4.2-5.4); RED CELL DISTRIBUTION WIDTH 18.7 % (11.6-14.6)
[2018-08-27] MEDS ORDERED: MECLIZINE 25MG TABLET PO PRN (10:30)
[2018-08-27] MEDS: AMLODIPINE 10MG TABLET PO SCH (11:11)
[2018-08-27] MEDS: SEVELAMER CARBONATE 800 MG TABLET PO SCH (11:11)
[2018-08-27] MEDS: ASPIRIN 81MG EC TABLET PO SCH (11:11)
[2018-08-27] MEDS: PAROXETINE HCL 10MG TABLET PO SCH (11:12)
[2018-08-27] MEDS: BUPROPION HCL 150MG SR TABLET PO SCH (11:12)
[2018-08-27] MEDS ORDERED: HYDRALAZINE HCL 100MG TABLET PO SCH (14:00)
== END 2018-08-27 15:30 | disposition home or self-care (01) | DRG 64 ==
LOC: ER 20:33 → 8WST 08-24 02:54 → EDBEDREQTM 08-24 02:56 → EDBEDREQ 08-24 02:56 → ENRESERV 08-24 14:27
PROVIDERS: ADMIT Internal Medicine; ATTEND Internal Medicine
PROC: 5A1D70Z Performance of Urinary Filtration, Intermittent, Less than 6 Hours Per Day (ICD-10-PCS; principal; 2018-08-25)
PROC: 5A1D70Z Performance of Urinary Filtration, Intermittent, Less than 6 Hours Per Day (ICD-10-PCS; 2018-08-27)
DX: I63.9 Cerebral infarction, unspecified (principal); G93.41 Metabolic encephalopathy; N18.6 End stage renal disease; E44.1 Mild protein-calorie malnutrition; I13.2 Hypertensive heart and chronic kidney disease with heart failure and with stage 5 chronic kidney disease, or end stage renal disease; H83.09 Labyrinthitis, unspecified ear; R27.0 Ataxia, unspecified; E11.22 Type 2 diabetes mellitus with diabetic chronic kidney disease; D63.1 Anemia in chronic kidney disease; E11.51 Type 2 diabetes mellitus with diabetic peripheral angiopathy without gangrene; E66.01 Morbid (severe) obesity due to excess calories; E78.00 Pure hypercholesterolemia, unspecified; E78.5 Hyperlipidemia, unspecified; I25.10 Atherosclerotic heart disease of native coronary artery without angina pectoris; F32.9 Major depressive disorder, single episode, unspecified; F41.9 Anxiety disorder, unspecified; I95.9 Hypotension, unspecified; I48.91 Unspecified atrial fibrillation; I50.9 Heart failure, unspecified; Z68.37 Body mass index [BMI] 37.0-37.9, adult; Z86.73 Personal history of transient ischemic attack (TIA), and cerebral infarction without residual deficits; I25.2 Old myocardial infarction; Z86.79 Personal history of other diseases of the circulatory system; Z88.0 Allergy status to penicillin; Z95.5 Presence of coronary angioplasty implant and graft; Z98.84 Bariatric surgery status; Z99.2 Dependence on renal dialysis
CPT/HCPCS: 36415; 71045; 80048; 80051; 80061; 82962; 83605; 83735; 84100; 84145; 84439; 84443; 84484; 93005; 93306; 93880; 93970; 96372; 96374; 96375; 96376; 97116; 97162; 99285; J0885; J1650; J2270; J2405; J7040; J8597

== ENCOUNTER 2020-04-30 20:11 | Emergency (ER) | payer MEDICARE, MEDICAID, OTHER ==
[~2020-04-30] VITALS: Ht 167.6 cm; Wt 75.0 kg
[~2020-04-30 20:11] MED LIST changes: -ASPI-1159 MT; -CALC-381 PO; -CHOL100044 PO; -METO-396 MT; -VALS320T2 PO
[2020-04-30] MEDS ORDERED: BACITRACIN ZINC OINT UDPKT TOP ONE (20:45)
[2020-04-30] MEDS ORDERED: LIDOCAINE 1%/EPI 1:100,000 10 ML VIAL IJ ONE (20:45)
[2020-04-30] MEDS ORDERED: LIDOCAINE HCL/EPINEPHRINE 1%-EPI 1:100,000 20 ML VIAL INFIL SCH (21:00)
[2020-05-01 00:07] VITALS: BP 186/60
== END 2020-05-01 00:16 | disposition home or self-care (01) ==
LOC: ER 20:11
DX: T82.41XA Breakdown (mechanical) of vascular dialysis catheter, initial encounter (principal); Y83.2 Surgical operation with anastomosis, bypass or graft as the cause of abnormal reaction of the patient, or of later complication, without mention of misadventure at the time of the procedure; Y92.89 Other specified places as the place of occurrence of the external cause; I12.0 Hypertensive chronic kidney disease with stage 5 chronic kidney disease or end stage renal disease; N18.6 End stage renal disease; Z99.2 Dependence on renal dialysis; Z88.0 Allergy status to penicillin
CPT/HCPCS: 93005; 99283; J3490

== ENCOUNTER 2021-11-28 20:00 | Emergency (ER) | payer OTHER ==
[~2021-11-28] VITALS: Ht 172.7 cm; Wt 73.0 kg
[2021-11-28 22:31] LABS: BASOPHILS % 0.8 % (0.0-2.0); EOSINOPHILS % 1.5 % (0.0-5.0); HEMATOCRIT. 26.4 % (36.0-48.0); HEMOGLOBIN. 8.7 g/dL (12.0-16.0); LYMPHOCYTES % 9.7 % (20.0-50.0); MEAN CORPUSCULAR HEMOGLOBIN 29.8 pg (28.0-32.0); MEAN CORPUSCULAR VOLUME 90.4 fL (81.0-99.0); MEAN PLATELET VOLUME 8.9 fl (7.4-10.4); PLATELET 406 x1000/uL (130-400); RED BLOOD CELL COUNT 2.92 mill/uL (4.2-5.4); RED CELL DISTRIBUTION WIDTH 15.9 % (11.6-14.6)
[2021-11-28 22:37] LABS: CHLORIDE 100 mEq/L (98-107)
[2021-11-28 22:44] LABS: INR 1.1; PROTHROMBIN TIME 11.4 sec (9.6-11.0)
[2021-11-29 00:07] VITALS: BP 132/60
== END 2021-11-29 00:08 | disposition home or self-care (01) ==
LOC: ER 20:00
DX: T82.838A Hemorrhage due to vascular prosthetic devices, implants and grafts, initial encounter (principal); X58.XXXA Exposure to other specified factors, initial encounter; J44.9 Chronic obstructive pulmonary disease, unspecified; Z98.890 Other specified postprocedural states; Z79.899 Other long term (current) drug therapy; Z88.0 Allergy status to penicillin
CPT/HCPCS: 36415; 80053; 85025; 86850; 86900; 99291

== ENCOUNTER 2022-05-19 19:37 | Emergency (ER) | payer OTHER, MEDICAID ==
[~2022-05-19] VITALS: Ht 167.6 cm; Wt 75.0 kg
[2022-05-19 20:47] LABS: HEMOGLOBIN. 9.6 g/dL (12.0-16.0); MEAN CORPUSCULAR HEMOGLOBIN 30.3 pg (28.0-32.0); MEAN CORPUSCULAR VOLUME 94.5 fL (81.0-99.0); MEAN PLATELET VOLUME 9.1 fl (7.4-10.4); PLATELET 447 x1000/uL (130-400); RED BLOOD CELL COUNT 3.17 mill/uL (4.2-5.4)
[2022-05-19 20:54] LABS: CHLORIDE 101 mEq/L (98-107)
[2022-05-19 22:40] LABS: PLATELET ESTIMATE INCREASED
[2022-05-19 22:50] VITALS: BP 176/49
== END 2022-05-19 22:50 | disposition home or self-care (01) ==
LOC: ER 19:37
DX: L98.8 Other specified disorders of the skin and subcutaneous tissue (principal); E11.9 Type 2 diabetes mellitus without complications; I10 Essential (primary) hypertension; E05.90 Thyrotoxicosis, unspecified without thyrotoxic crisis or storm; Z79.899 Other long term (current) drug therapy
CPT/HCPCS: 36415; 80053; 82962; 85025; 93005; 99284